=== PATIENT | male | born 1945 | race Caucasian/White ===

== ENCOUNTER 2020-11-06 02:11 | Outpatient (CLI) | payer MEDICARE, OTHER, SELFPAY ==
[2020-11-06 18:46] LABS: SARS-CoV-2 RNA PCR Negative
== END 2020-11-06 02:12 | disposition home or self-care (01) ==
LOC: ANHCOVIDDT 02:11
PROVIDERS: Visit Provider Internal Medicine Hematology & Oncology
DX: R91.8 Other nonspecific abnormal finding of lung field (principal); Z20.828 Contact with and (suspected) exposure to other viral communicable diseases
CPT/HCPCS: 87635; C9803; U0003

== ENCOUNTER 2020-11-09 08:52 | Outpatient (CLI) | payer MEDICARE, SELFPAY ==
[2020-11-09] VITALS (7 sets, daily range): BP systolic 138–159; BP diastolic 64–101; PULSE 79–87; RESP 14–24; O2SAT 94–100
--- NOTE | ~2020-11-09 | CT_ITS ---
EXAMINATION:CT chest wo con DATE: 11/09/2020 11:11 INDICATION: Right lung upper lobe mass. TECHNIQUE: Computed tomography (CT) of the chest was performed without intravenous contrast. Automate d exposure control and iterative reconstruction technique were employed. The dose-length product (DLP ) was 157.29 mGy-cm. COMPARISON: CT abdomen and pelvis 09/17/2015 FINDINGS: There is mild emphysema. There is mild scarring at left lung apex. There is a moderate-size d right pleural effusion. There is a right perihilar mass that invades the right mainstem bronchus, r ight upper lobe bronchus, and bronchus intermedius. There is complete collapse of right upper lobe an d right middle lobe. The mass abuts the superior vena cava The mass is not well distinguished from th e adjacent collapsed lung, but likely measures at least 5.3 cm. There is mild mediastinal and right s upraclavicular lymphadenopathy. For example, a node in the right superior mediastinum measures 10 x 1 2 mm. A right supraclavicular node measures 1.5 x 1.2 cm. The heart size is normal. There are coronar y artery calcifications. There are changes of aortic valve replacement. Partially visualized is a casa nt graft in abdominal aorta. There is bilateral gynecomastia. There are enlarged venous collaterals i n the chest wall. There is mild thoracic spondylosis. IMPRESSION: 1. Right lung perihilar mass, consistent with primary bronchogenic carcinoma. 2. Mild mediastinal and right supraclavicular lymphadenopathy, consistent with metastatic disease. 3. Moderate-sized right pleural effusion. Ultrasound-guided thoracentesis is recommended. Reviewed, dictated and finalized at location A. R CONNECTOR IMPRESSION: 1. Right lung perihilar mass, consistent with primary bronchogenic carcinoma. 2. Mild mediastinal and right supraclavicular lymphadenopathy, consistent with metastatic disease. 3. Moderate-sized right pleural effusion. Ultrasound-guided thoracentesis is re commended.
--- NOTE | ~2020-11-09 | US_ITS ---
EXAMINATION: US thoracentesis DATE: 11/09/2020 13:19 INDICATION: pleural effusion TECHNIQUE: The procedure and its risks, benefits, and alternatives were discussed with the patient. P otential risks discussed included bleeding, infection, and pneumothorax. The patient understood the r isks and agreed to proceed. The skin was prepped and draped in sterile fashion. 1% lidocaine was used for local anesthesia. Under ultrasound guidance, a 5 Fr catheter with trochar was advanced into the right pleural effusion. Fluid was aspirated. The catheter was removed, and a dressing was applied. Th ere were no immediate complications. FINDINGS: Ultrasound images demonstrate a right pleural effusion and the catheter within the fluid. IMPRESSION: 1. Successful ultrasound-guided thoracentesis yielding 1000 mL of clear, odalis-colored fluid. Reviewed, dictated and finalized at location A. LATION BATTING MACHINE OPERATOR IMPRESSION: 1. Successful ultrasound-guided thoracentesis yielding 1000 mL of clear, odalis -colored fluid.
--- NOTE | ~2020-11-09 | XR_ITS ---
EXAMINATION: [id number] DATE: 11/09/2020 13:08 INDICATION: Right pleural effusion status post thoracentesis. TECHNIQUE: A single frontal view of the chest was obtained. COMPARISON: Chest CT 11/09/2020 FINDINGS: There is a right perihilar mass with collapse of right upper lobe and right middle lobe. Th ere is a small right pleural effusion. No pneumothorax. The heart size is normal. There are changes o f aortic valve replacement. IMPRESSION: 1. Right perihilar mass suspicious for primary bronchogenic carcinoma. 2. Right upper lobe and right middle lobe collapse. 3. Small right pleural effusion. Reviewed, dictated and finalized at location A. OPERATOR
[2020-11-09 09:20] LABS: INR 1.2
--- NOTE | 2020-11-09 15:21 | SUR.PHASEII ---
no shadowing on bandaid on back from procedure. dr jeffrey was called about pt discharge time. was ok with him leaving.
[2020-11-11 07:40] LABS: Glucose Pleural Fluid 107 mg/dL; LDH Pleural Fluid 143 U/L; Total Protein Pleural Fluid 4.2 g/dL
== END 2020-11-09 15:10 | disposition home or self-care (01) ==
PROVIDERS: Radiology Diagnostic Radiology; PCP Family Medicine; Visit Provider Internal Medicine Hematology & Oncology
DX: J90 Pleural effusion, not elsewhere classified (principal)
CPT/HCPCS: 32555; 36415; 71250; 82945; 83615; 84157; 85610; 87070; 87075; 87205; 88104; 88108; 88305

== ENCOUNTER 2020-11-19 09:16 | Outpatient (CLI) | payer MEDICARE, SELFPAY ==
--- NOTE | ~2020-11-19 | PE_ITS ---
EXAMINATION: PET skull to mid thigh DATE: 11/19/2020 10:59 INDICATION: Right upper lobe mass TECHNIQUE: 10.1 mCi of 18-fluorodeoxyglucose (18-FDG) was administered i.v. Low dose computed tomogra phy (CT) images were acquired from the base of the brain to the proximal thighs for attenuation corre ction and anatomic localization. Positron emission tomography (PET) images were acquired after inject ion. Images including fused PET/CT images were reconstructed in axial, coronal, and sagittal planes. Automatic exposure control is employed as a dose reduction technique. COMPARISON: CT dated 09/17/2015 and 11/09/2020 FINDINGS: Head/neck: There is mucosal uptake in the neck without associated mass, weekly physiologic. No cervical lymphade nopathy. There is atherosclerosis. There is an ill-defined right parotid mass which is FDG avid. Maxi mum SUV is 12.2. Chest: There is a right upper lobe mass measuring 7.7 x 6.9 cm greatest axial dimension with intense FDG upt michael. Maximum SUV is 10.4. Interval development of large right pleural effusion which appears partiall y loculated. There is a mottled appearance to the loculated fluid anteriorly, suspicious for empyema. There is groundglass opacification of the right lung which may represent atelectasis or pneumonia. H eart size is normal. There is atherosclerosis of the aorta and coronary arteries. Status post median sternotomy for CABG. There are mildly enlarged right supraclavicular nodes without significant FDG up take, nonspecific. Abdomen/pelvis/proximal thighs: The liver, spleen, pancreas, adrenal glands and kidneys are unremarkable. There is an infrarenal abdo robyn aortic aneurysm reidentified with interval placement of aorto biiliac endoluminal stent. There is mild FDG uptake in the small and large bowel, likely physiologic. There is severe lumbar spondylos is. There is a left total hip arthroplasty. Moderate colonic fecal loading. No obstruction. Bones/Soft tissues: No hypermetabolic activity in the bones. IMPRESSION: 1. Large FDG avid right upper lobe mass measuring 7.7 x 6.9 cm with maximum SUV of 10.4, consistent w ith bronchogenic carcinoma. 2: Large loculated right pleural effusion with possible associated empyema. Pleural effusion possibly malignant. 3: Ill-defined FDG avid right parotid gland mass with maximum SUV of 12.2, consistent with metastatic disease. Reviewed, dictated and finalized at location A. MOTIVE PROJECT ENGINEER IMPRESSION: 1. Large FDG avid right upper lobe mass measuring 7.7 x 6.9 cm with maximum SUV of 10.4, consistent with bronchogenic carcinoma. 2: Large loculated right pleural effusion with possible associated empyema. Ple ural effusion possibly malignant. 3: Ill-defined FDG avid right parotid gland mass with maximum SUV of 12.2, cons istent with metastatic disease.
[2020-11-19 09:31] LABS: Glucose Point of Care 96 (65-105)
== END 2020-11-19 09:17 | disposition home or self-care (01) ==
PROVIDERS: PCP Family Medicine; Visit Provider Internal Medicine Hematology & Oncology
DX: R91.8 Other nonspecific abnormal finding of lung field (principal)
CPT/HCPCS: 78815; A9552

== ENCOUNTER 2020-11-28 01:26 | Outpatient (CLI) | payer MEDICARE, SELFPAY ==
[2020-11-28 20:08] LABS: SARS-CoV-2 RNA PCR Negative
== END 2020-11-28 01:27 | disposition home or self-care (01) ==
LOC: ANHCOVIDDT 01:26
PROVIDERS: Radiology Diagnostic Radiology; PCP Family Medicine; Visit Provider Internal Medicine Hematology & Oncology
DX: Z01.812 Encounter for preprocedural laboratory examination (principal); Z20.822 Contact with and (suspected) exposure to COVID-19
CPT/HCPCS: C9803; U0003

== ENCOUNTER 2020-12-02 10:18 | Outpatient (CLI) | payer MEDICARE, SELFPAY ==
[2020-11-25 10:27] VITALS: BMI 21.0
[2020-12-02] VITALS (10 sets, daily range): BP systolic 120–159; BP diastolic 60–83; PULSE 72–83; RESP 18–20; O2SAT 94–99
--- NOTE | ~2020-12-02 | CT_ITS ---
Corrected Report Order # Associated 12/03/2020 [facility] EXAMINATION: CT bx lung DATE: 12/02/2020 11:44 INDICATION: Malignant neoplasm of right lung. TECHNIQUE: The procedure including the risks, benefits, and alternatives and possibility of chest tube placement were discussed with the patient. Risks discussed included infection, approximately 1/20 risk of symptomatic hemorrhage beyond mild hemoptysis, approximately 1/3 risk of pneumothorax, approximately 1/10 risk of pneumothorax severe enough to warrant chest tube placement. The patient understood the risks and agreed to proceed. The patient was placed supine. The skin overlying the right chest was prepped and draped in sterile fashion. Anesthetic was administered with 1% lidocaine subcutaneously. A 19 gauge outer needle was advanced under CT guidance to the lesion of interest. A 20 gauge core biopsy needle was then used to obtain 3 core biopsy specimens. The needle was removed and the entry site was cleaned and dressed. The mA was adjusted according to patient size. Iterative reconstruction technique was employed. The dose-length product was 103.88 mGy-cm. There were no immediate complications. FINDINGS: CT images demonstrate the outer needle tip in a 7 cm mass in right lung upper lobe. IMPRESSION: 1. CT-guided core needle biopsy of a mass in right lung upper lobe. Reviewed, dictated and finalized at location A. YL WRINGER OPERATOR MTDD
--- NOTE | ~2020-12-02 | XR_ITS ---
EXAMINATION: XR chest 1V portable DATE: 12/02/2020 12:26 INDICATION: Right lung mass status post percutaneous biopsy. TECHNIQUE: A single frontal view of the chest was obtained. COMPARISON: Chest single view at 11:42 AM FINDINGS: There is a mass in right lung upper lobe. There is a moderate-sized right pleural effusion. No pneumothorax. The heart size is normal. There are changes of aortic valve replacement. IMPRESSION: 1. Mass in right lung upper lobe suspicious for primary bronchogenic carcinoma. 2. Stable moderate-sized right pleural effusion. Reviewed, dictated and finalized at location A. ET STITCHER
--- NOTE | ~2020-12-02 | XR_ITS ---
EXAMINATION: XR chest 1V portable DATE: 12/02/2020 14:33 INDICATION: Right lung mass status post percutaneous biopsy. TECHNIQUE: A single frontal view of the chest was obtained. COMPARISON: Chest single view at 12:21 PM FINDINGS: There is a mass in right lung upper lobe. There is a moderate-sized right pleural effusion. No pneumothorax. The heart size is normal. There are changes of aortic valve replacement. IMPRESSION: 1. Mass in right lung upper lobe suspicious for primary bronchogenic carcinoma. 2. Stable moderate-sized right pleural effusion. Reviewed, dictated and finalized at location A. CAL INSTRUMENT ASSEMBLER
--- NOTE | ~2020-12-02 | XR_ITS ---
EXAMINATION: XR chest 1V DATE: 12/02/2020 11:46 INDICATION: Right lung mass status post percutaneous biopsy. TECHNIQUE: A single frontal view of the chest was obtained. COMPARISON: PET CT 11/19/2020 FINDINGS: There is a mass in right lung upper lobe. There is a moderate-sized right pleural effusion. No pneumothorax. The heart size is normal. There are changes of aortic valve replacement. IMPRESSION: 1. Mass in right lung upper lobe suspicious for primary bronchogenic carcinoma. 2. Moderate-sized right pleural effusion. Reviewed, dictated and finalized at location A. M PROJECT MANAGER
--- NOTE | 2020-12-02 15:10 | SUR.PHASEII ---
1510 - iv dc'jose. catheter intact
--- NOTE | 2020-12-02 15:10 | SUR.PHASEII ---
1450 - Dr. Ac called and stated that pt may be discharged home
== END 2020-12-02 14:50 | disposition home or self-care (01) ==
PROVIDERS: Radiology Diagnostic Radiology; PCP Family Medicine; Visit Provider Internal Medicine Hematology & Oncology
DX: C34.91 Malignant neoplasm of unspecified part of right bronchus or lung (principal)
CPT/HCPCS: 32408; 71045; 81210; 81235; 81275; 81276; 88271; 88274; 88305; 88342; 88360; 88381

== ENCOUNTER 2020-12-05 04:46 | Outpatient (CLI) | payer MEDICARE, SELFPAY ==
[2020-12-05 19:32] LABS: SARS-CoV-2 RNA PCR Negative
== END 2020-12-05 04:47 | disposition home or self-care (01) ==
LOC: ANHCOVIDDT 04:46
PROVIDERS: Surgery; PCP Family Medicine; Visit Provider Surgery
DX: Z01.812 Encounter for preprocedural laboratory examination (principal); Z20.822 Contact with and (suspected) exposure to COVID-19
CPT/HCPCS: C9803; U0003

== ENCOUNTER 2020-12-09 02:48 | Day surgery (SDC) | payer MEDICARE, SELFPAY ==
[2020-12-02 15:34] VITALS: BMI 20.9
--- NOTE | 2020-12-08 11:20 | PM.SD ---
Same Day Admit/Disch: HPI History of Present Illness Chief complaint: Malignant Neoplasm Of Right Lung Narrative: Migel Chin is a 75 year old male who was found to have a large right upper lobe lung mass. CT-guided biopsy of this showed non-small cell lung cancer. He also has mediastinal and supraclavicular adenopathy. Plans are for him to have chemotherapy and he is taken to surgery now to have a Port-A-Cath placed for vascular access. [facility] Past Medical History Medical History (Updated 12/09/20 @ 10:25 by Eric Shah MD) Benign parotid tumor CAD (coronary artery disease) Surgical History Surgical History Hx of CABG Family History Family History Father Family history of diabetes mellitus in first degree relative Other Family history of allergic disorder Social History Social History Smoking packs per day: 1 Smoking cigarettes per day: 20.0 Years smoked: 35 Smoking pack-years: 35.00 Smoking status: Former smoker Tobacco type: cigarettes Second hand tobacco smoke exposure: No Alcohol intake: never Substance use: never Substance use type: does not use Living arrangements: alone Spiritual care concerns: No Same Day Admit/Disch: Med Pre-admit Medications Home Medications Medication Instructions Recorded Confirmed Type atorvastatin 10 mg PO HS 11/09/20 12/09/20 History furosemide 40 mg PO DAILY 11/09/20 12/09/20 History lisinopril 20 mg PO DAILY 11/09/20 12/09/20 History metoprolol tartrate 12.5 mg PO BID 11/09/20 12/09/20 History ibuprofen 600 mg PO Q6H PRN #14 tablet 12/09/20 Rx Exam Const: General: comfortable, no acute distress, alert and awake HENMT: Head: normocephalic and atraumatic Mouth: Yes Normal oral and palatal mucosa present Eyes: Conjunctivae: conjunctivae normal Pupils: Equal, round and reactive pupils present EOM: EOMs intact bilaterally Neck: Neck: normal visual inspection, no lymphadenopathy and nontender Resp: Effort & Inspection: normal respiratory effort Auscultation: clear to auscultation bilaterally Cardio: Rate: regular rate Rhythm: regular rhythm Heart sounds: no gallops, no murmurs and no rubs GI: Inspection: non-distended GI Palp: Yes Soft to palpation, No Tenderness to palpation present (GI), No Hepatomegaly present and No Splenomegaly present Skin: Lesions: no lesions Rashes: no rashes Neuro: General: no focal motor deficits and CN's II-XI intact bilaterally Cranial nerves: Yes Equal, round and reactive pupils present, Yes Bilaterally intact EOM present, Yes facial symmetry and Yes Midline tongue present Speech: normal speech Motor exam (neuro): 5/5 motor strength present throughout and Motor abnormalities not present Extrem: General: no clubbing, cyanosis or edema and edema Psych: Affect: normal affect Thought process: Normal thought process present Insight: Good insight present (Psych) DS: Summary Hospital Course Hospital Course: Port-A-Cath unable to be placed due to tumor involvement of the proximal SVC. Patient went home after attempted port placement. Time Spent with Patient Time attestation: Total time spent providing and/or coordinating discharge services: Unable to place Port-A-Cath due to tumor involvement of proximal SVC. Patient went home after attempted placement. DS: Admitting Diagnosis Admitting Diagnosis Admitting Diagnosis: stage IIIC non-small cell right lung cancer inadequate venous access for chemotherapy-- plan to proceed with placement of Port-A-Cath for chemotherapy vascular access. The procedure the risks the benefits have been discussed. All questions were answered. This will be done under fluoroscopy and anesthesia. He agrees to go ahead. smoker essential hypertension DS: Discharge Diagnosis Discharge Diagnosis (1) Prima
--- NOTE | ~2020-12-09 | XR_ITS ---
EXAMINATION: XR chest port-a-cath/central INDICATION: Attempted Port-A-Cath insertion TECHNIQUE: Portable AP chest at 1308 hours COMPARISON: 12/02/2020 FINDINGS: No pneumothorax is identified. There is a stable mass of the right upper lobe. A moderate s ize right pleural effusions present. The heart size is normal. Changes of aortic valve replacement ar e noted. IMPRESSION: 1. No pneumothorax. 2. Right upper lobe mass, suspicious for primary bronchogenic carcinoma. Reviewed, dictated and finalized at location A. CISER
--- NOTE | ~2020-12-09 | XR_ITS ---
EXAMINATION: XR fl guide central line place INDICATION: Port-A-Cath insertion TECHNIQUE: Four intraoperative fluoroscopic images are submitted for review. Total fluoroscopic time was 384.9 seconds COMPARISON: None available FINDINGS: Final fluoroscopic image demonstrates the catheter tip in the distal superior vena cava. Pl ease refer to procedure note for full details. IMPRESSION: 1. Catheter tip ending in the distal superior vena cava. Please refer to procedure note for full deta ils. Reviewed, dictated and finalized at location A. R WET POUR IMPRESSION: 1. Catheter tip ending in the distal superior vena cava. Please refer to proced ure note for full details.
--- NOTE | 2020-12-09 10:24 | WPDANESEPPF ---
Anes - Initial Pre Proc Eval Procedure: Operation Date: 12/09/20 12:00 Proposed Procedures p Insertion Harsh Cath - Cem Haile MD Date/Time: 12/09/20 10:24 Surgeon: Cem Haile MD Pre Op Diagnosis: Malignant Neoplasm Of Right Lung Patient Data Age: 75 Gender: M Height: 5 ft 11 in Weight: 68.3 kg Allergies Allergy/AdvReac Type Severity Reaction Status Date / Time codeine Allergy Nausea and Verified 11/25/20 10:09 Vomiting nut - unspecified AdvReac Hives Verified 12/02/20 15:45 Home Medications Medication Instructions Recorded Confirmed Type atorvastatin 10 mg PO HS 11/09/20 12/02/20 History furosemide 40 mg PO DAILY 11/09/20 12/02/20 History lisinopril 20 mg PO DAILY 11/09/20 12/02/20 History metoprolol tartrate 12.5 mg PO BID 11/09/20 12/02/20 History Patient hx anesthesia problems: none Family hx anesthesia problems: none PMFSH Past Medical History Medical History (Updated 12/09/20 @ 10:25 by Eric Shah MD) Benign parotid tumor CAD (coronary artery disease) Surgical History Surgical History Hx of CABG Family History Family History Father Family history of diabetes mellitus in first degree relative Other Family history of allergic disorder Social History Social History Smoking packs per day: 1 Smoking cigarettes per day: 20.0 Years smoked: 35 Smoking pack-years: 35.00 Smoking status: Former smoker Tobacco type: cigarettes Second hand tobacco smoke exposure: No Alcohol intake: never Substance use: never Substance use type: does not use Living arrangements: alone Spiritual care concerns: No Anes - Eval Final PreProcedure Day of Procedure 12/09/20 10:24 Patient weight: normal Heart: regular rate and rhythm Lungs: clear to auscultation Airway: Mallampati scale class II Neurological: alert and oriented Last oral intake: >/= 8 hours ASA classification: III Emergent: no Anesthetic plan: proceed Anesthesia type and monitoring: general GIVS and standard monitoring Informed Consent: The patient's anesthetic plan and its attendant risks and benefits were discussed with the patient/family/POA. Questions were solicited and answers provided to the satisfaction of the patient/family/POA.
[2020-12-09] MEDS: LACTATED RINGERS 1,000 ML 30 ML IV CONT (10:30)
[2020-12-09 11:26] VITALS: BP 115/64; PULSE 83; RESP 20; TEMP 36.2; O2SAT 97
[2020-12-09] MEDS: ceFAZolin 2 GM/D5W 50 ML 2 GM/50 ML BAG IVPB (11:38)
[2020-12-09] MEDS: BUPIVACAINE HCL 0.5% PF 30 ML VIAL 10 ML INFILTRATE (11:56)
[2020-12-09] MEDS: HEPARIN SODIUM 1,000 UNITS/ML VIAL 1000 UNITS IV PUSH (11:58)
[2020-12-09 12:52] VITALS: BP 96/45; PULSE 80; RESP 16; O2SAT 95
--- NOTE | 2020-12-09 13:19 | PM.PROC ---
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 The left neck and left upper chest were prepped and draped. The proposed subclavian incision was marked on the skin. Local anesthetic was infiltrated into the area of the anticipated incision and into the subcutaneous tissues. Local was infiltrated under the left clavicle is well. Incision was made dissection was carried down through the subcutaneous and through the pectoralis major fascia. Additional cautery was used to achieve good hemostasis. Dissecting under the pectoralis fascia, a sub fascial pocket was created in the lower portion of the wound. Additional local was infiltrated into the muscle and the flap over this pocket. I then proceeded to cannulate the left subclavian vein. Venous blood return was good but the guidewire had difficulty passing. We brought in C-arm fluoroscopy. There appeared to be tracheal deviation due to tumor. Eventually the guidewire did pass into what appeared to be the superior vena cava. The introducer and sleeve were passed over the guidewire and assisted in passing the guidewire into the proximal SVC. The length of Port-A-Cath needed was determined using C-arm fluoroscopy and mapping over the course of the guidewire. I then removed the guidewire and introducer. No backbleeding occurred through the sleeve. I advanced the Port-A-Cath through the sleeve and, using fluoroscopy, checked its position. It was in the expected position. However I could not aspirate any blood from the Port-A-Cath. The sleeve was removed. I slowly retracted the Port-A-Cath and was never able to get any blood return at all from the path into the SVC. This Port-A-Cath was then removed. I tried to cannulate the left subclavian vein again. This was more medial and a good cannulation occurred. This time I used a 0.035 glidewire and pass this with only mild amount of difficulty in to the right ventricle. It did have a deviated course as expected but appeared to be in the right ventricle as 1 would expect. A different Port-A-Cath was brought into the field. This Port-A-Cath was cut to a longer length and, after passing a sheath and introducer, I removed the guidewire and the introducer. Again no back bleeding was noted. I passed the new Port-A-Cath and, under fluoroscopy it appeared to be in the superior vena cava or right atrium. Unfortunately this did not bring back any venous return either when the Port-A-Cath was checked. I slowly pulled it back with similar results. From there I tried several times to cannulate the left internal jugular vein but did not get a satisfactory venous return. Several arterial appearing returns occurred. Since the problem seemed to be more associated with the superior vena cava, I was not optimistic that an internal jugular cannulization would be any more effective. At this point I decided to abandon placement of the Port-A-Cath at this time. We held pressure on the left neck puncture sites. There was minimal swelling there. I closed the left subclavian incision in layers with 2 0 Vicryl. The skin was closed with running subcuticular 4 0 Monocryl skin suture. This wound was dressed with Exofin surgical adhesive. The patient was taken to recovery in good condition. Sponge and needle counts were correct x2. Portable chest x-ray is pending. Following the procedure, I looked at the CT scan with our radiologist Dr. Ac. We reviewed the mediastinum in regards to the left and right brachiocephalic veins and the SVC. The lung tumor had caused both the left and right brachial cephalic veins to be diminutive and caught up in the tumor. The most proximal SVC was really
[2020-12-09 13:39] VITALS: BP 96/45; PULSE 81; RESP 16; O2SAT 95
[2020-12-09 14:10] VITALS: BP 139/61; PULSE 75; RESP 16
[2020-12-09 14:50] VITALS: BP 134/64; PULSE 79; RESP 16
== END 2020-12-09 15:34 | disposition home or self-care (01) ==
PROVIDERS: PCP Family Medicine; Visit Provider Surgery
PROC: (CPT 36561; principal; 2020-12-09 12:00)
DX: C34.11 Malignant neoplasm of upper lobe, right bronchus or lung (principal); I87.8 Other specified disorders of veins; I25.10 Atherosclerotic heart disease of native coronary artery without angina pectoris; Z95.1 Presence of aortocoronary bypass graft; Z87.891 Personal history of nicotine dependence
CPT/HCPCS: 36561; 77001; C1769; C1788; C9290; J0690; J1644; J2704; J3010; J7030; J7120

== ENCOUNTER 2020-12-18 13:34 | Outpatient (CLI) | payer MEDICARE, SELFPAY ==
--- NOTE | 2020-12-18 | ECHO_ITS ---
Patient Info Name: Migel Chin Age: 75 years : 1945 Gender: Male Ht: 71 in Wt: 150 lbs BSA: 1.84 m2 HR: 83 bpm BP: 121 / 65 mmHg Technical Quality: Poor Exam Date: 12/18/2020 1:45 PM Exam Location: [facility] Patient Status: Outpatient Admit Date: 12/18/2020 Staff Ordering Physician: Manuel Tenorio MD Plaster Maker: Caroline Maharaj RDCS Attending Provider: Manuel Tenorio MD Referring Physician: Jona YU; Exam Type: CA echo doppler color flow Study Info Indications - LUNG CA/PRE CHEMO R60.9 - Edema, unspecified Complete two-dimensional, color flow and Doppler transthoracic echocardiogram is performed. Reason for Poor Study: poor echocardiographic windows Summary 1. Complete two-dimensional, color flow and Doppler transthoracic echocardiogram is performed. 2. Normal left ventricular size and thickness with good systolic function of all segments. No segmental wall motion abnormalities. The calculated ejection fraction is 60 9%. Diastolic dysfunction grade 1 is present. 3. No pulmonary hypertension, estimated pulmonary arterial systolic pressure is 30 mmHg. 4. The mitral valve is thickened and the annulus is calcified. There is thickening and calcification of the subvalvular apparatus as well. However there is no significant stenosis or regurgitation. 5. Left atrium is not well seen, and never opens up. Cannot exclude extrinsic compression on the left atrium. 6. Technically difficult study; some images had to be done subcostally. 7. Normal sinus rhythm. Left Ventricle Left ventricular chamber dimension is normal. Left ventricular systolic function is normal, estimated at Empty. There is no increased left ventricular wall thickness. Left ventricular septal wall motion is normal. The left ventricular diastolic function is grade I diastolic dysfunction. Right Ventricle Right ventricular chamber dimension is normal. Right ventricular systolic function is normal. Left Atria Left atrial chamber dimension is normal. Right Atria Right atrial chamber dimension is normal. Aortic Valve The aortic valve is trileaflet. There is no aortic valve sclerosis. There is no aortic valve stenosis. There is no aortic valve regurgitation. Pulmonic Valve The pulmonic valve is normal. There is no pulmonic valve stenosis. There is no pulmonic regurgitation. Mitral Valve The mitral valve has thickened leaflets and calcified annulus. There is no mitral valve stenosis. There is trace mitral valve regurgitation. Tricuspid Valve The tricuspid valve leaflets are normal. There is no significant tricuspid valve stenosis. There is trace tricuspid valve regurgitation. No pulmonary hypertension, estimated pulmonary arterial systolic pressure is 30 mmHg. Pericardium/Pleural The pericardium appears normal. There is no pericardial effusion. Inferior Vena Cava Normal inferior vena cava with >50% collapse upon inspiration consistent with Empty right atrial pressure, 10 mmHg. Aorta The aortic root size at the sinus of Valsalva is normal. The prox ascending aorta size is normal. Left Ventricular Outflow Tract Name Value Normal LVOT 2D LVOT Diameter 2.0 cm
== END 2020-12-18 13:35 | disposition home or self-care (01) ==
PROVIDERS: PCP Family Medicine; Visit Provider Internal Medicine Hematology & Oncology
DX: Z51.11 Encounter for antineoplastic chemotherapy (principal); R60.9 Edema, unspecified
CPT/HCPCS: 93306

== ENCOUNTER 2021-01-12 13:00 | Outpatient (RCR) | payer MEDICARE, SELFPAY ==
--- NOTE | 2020-11-25 10:19 | PDRADONCCN ---
Recommendations I agree with obtaining a tissue diagnosis with biopsy of the lung mass. I recommend following up with Dr. Zepeda for his FDG-avid parotid tumor. Pending pathologic confirmation of his locally advanced lung malignancy, I recommend a course of thoracic chemoradiotherapy - 60 Gy in 30 fractions. Given the proximity of the treatment volume to critical normal structures including the normal lung, heart, esophagus, brachial plexus and spinal cord, IMRT will be required in an effort to spare these structures while providing the necessary high doses of radiation to the target. We discussed the details of external beam radiation therapy directed at the right upper lobe lung and involved adjacent lymph nodes which would be delivered daily, Monday through Monday over about 6 weeks. We discussed the expected acute side effects of treatment including esophagitis, fatigue and skin irritation, as well as the possible but unlikely late complications including pneumonitis, brachial plexus or spinal cord injury, heart damage and esophageal stricture. These late effects of radiotherapy will be minimized with the use of VMAT IMRT. After our discussion, Mr. Chin expressed an interest in proceeding with treatment as outlined. We will await an official tissue diagnosis from his upcoming biopsy. He will return for CT simulation and radiation treatment planning in the upcoming days. We will coordinate the start of his treatment with medical oncology for concurrent chemotherapy. Thank you for allowing me to participate in the care of this patient. If I can be of any further assistance, please do not hesitate to contact me. Time spent with patient: 46 min Impression Migel Chin is a 75 y.o. male with newly diagnosed lung cancer - stage IIIC (T4 N3 MX). He also has a right parotid tumor as well. [facility] - Date/Time Seen 11/25/20 10:19 - Identifying Data Migel Chin is a 75 y.o. male with newly diagnosed lung cancer - stage IIIC (T4 N3 MX). He has a right parotid tumor as well. He is seen in consultation today at the request of Dr. Manuel Tenorio for an opinion regarding radiation therapy. - History of Present Illness Mr. Chin initially had some chest discomfort which prompted a chest x-ray and subsequently a CT scan of chest on 11/09/2020 which showed a right lung perihilar mass, consistent with primary bronchogenic carcinoma, along with mild mediastinal and right supraclavicular lymphadenopathy, consistent with metastatic disease. A moderate-sized right pleural effusion was noted and an ultrasound-guided thoracentesis was performed on 11/09/2020. Cytology came back negative for malignancy. His chest discomfort went away immediately after his thoracentesis and has not returned. ?PET scan on 11/19/2020 revealed a 7.7 x 6.9 cm right upper lobe lung mass with SUV of 10.4, consistent with bronchogenic carcinoma. Also noted was an ill-defined right parotid mass with SUV of 12.2. Of note, he does have a history of multiple parotid gland tumor resections in the past under the direction of Dr. Zepeda with the last surgery 8 years ago for benign pathology. ?CT-guided biopsy of right upper lobe lung mass has been ordered by Dr. Tenorio and is scheduled for 12/02/2020. He is referred for a discussion regarding his radiotherapy options. - Medical History Medical History (Last Updated 11/25/20 @ 12:50 by Tashia Alejandro MD) Benign parotid tumor - Family History Family History Father Family history of diabetes mellitus in first degree relative Other Family history of allergic disorder - Social History Social History Alcohol Use: Alcohol intake: never Smoking Status: Smoking status: Current every day smoker - Medications atorvastatin 10 mg PO DAILY 11/09/20 [History Confirmed 11/25/20] furosemide 20 mg PO DAILY 11/09/20 [History Confirmed 11/25/20] lisinopril 20 mg PO DAILY 11/09/20 [History Confirmed
[2020-11-25 12:34] VITALS: BMI 21.2
[2020-11-25 12:36] VITALS: BP 118/60; PULSE 94; RESP 20; TEMP 37.2; O2SAT 97
--- NOTE | 2020-11-25 13:40 | PC.NURSE ---
Consult note faxed to Dr German office.
[2020-12-14 11:12] VITALS: BP 126/68; PULSE 90; RESP 22; TEMP 37.3; O2SAT 97
--- NOTE | 2020-12-14 11:19 | PDRADONCFUV ---
Assessment/Plan - Assessment Ready to start radiotherapy. - Plan 1. Proceed with 4D CT simulation and radiation treatment planning. 2. Plan for 30 fractions over 6 weeks starting in one week. 3. Informed consent obtained. 4. Chemotherapy per Dr. Tenorio. 5. Patient to discuss extremity swelling with Dr. Tenorio. Follow Up Note - Date/Time 12/14/20 11:19 - Identifying Data Migel Chin is a 75 y.o. male with newly diagnosed lung cancer - stage IIIC (T4 N3 M0). He returns today for initiation of radiation treatment planning. - Interval History Mr. Chin was unable to have a port placed and the procedure was aborted. He has significant swelling in his hands and feet and reports that lasix is not helping. He is planning on calling Dr. Tenorio today to discuss. H&P - Exam - General Appears pleasant and in no apparent distress. - Vital Signs Vital Signs Temp Pulse Resp BP Pulse Ox 12/14/20 11:12 37.3 C 90 22 H 126/68 97 Patient Weight 12/14/20 23:59 Weight 69.967 kg Pain rating is 0. - Exam Extremities: edema (Significant edema in hands and feet. )
--- NOTE | 2020-12-14 11:38 | WPDRADIATPRO ---
Radiation Procedure Note - Date/Time Date/Time: 12/14/20 11:38 - Summary Summary: Procedure Date: 12/14/[address] SIMULATION PROCEDURE PURPOSE: The patient is undergoing a virtual CT simulation for external beam radiation treatment planning. Today?s 4D-CT dataset will be utilized for intensity modulated treatment planning (IMRT). TREATMENT SITE(S): Right Lung NUMBER OF AREAS OR CASTELLANOS: One treatment area was simulated today. NUMBER OF PORTS: IMRT using multiple static gantry angles, arcs, or helical tomotherapy will be needed to cover the treatment volume and adequately protect nearby critical normal tissues. The number of ports will be determined during the treatment planning process. EQUIPMENT USED: Simulation was performed on the department?s dedicated CT simulator. IMMOBILIZATION: An alpha cradle device was fabricated to immobilize the patient?s body in treatment position. CONTRAST MEDIA: The use of contrast was not required for this simulation. EXTERNAL MARKERS: No external markers were used. TATTOOS: Positioning tattoos were applied to the patient?s skin BLOCKING: An intensity map generated by multiple MLC-shaped beamlets of complex design will be constructed as part of an IMRT treatment plan. COMPENSATING FILTER / WEDGE: None ISODOSE PLAN: An IMRT treatment plan will be performed to precisely deliver a specified dose to the treatment volume with narrow margins and to protect adjacent critical normal tissues from receiving excessive radiation exposure. SCHEDULING Prior to delivering the first radiation fraction, a simulation will be performed on the linear accelerator utilizing electronic portal imaging to verify the isocenter location and block design. DAILY IMAGE GUIDANCE: Utilizing the integrated CT scanner on the Elekta treatment machine, CT images through the treatment volume will be acquired daily prior to treatment to ensure precise patient positioning, thus allowing treatment of the tumor with narrow margins. MEDICAL NECESSITY FOR IMRT TREATMENT PLANNING: Dose escalation is planned to deliver radiation doses in excess of those commonly utilized with conventional treatments. The target volume is in close proximity to critical normal structures (lung, spinal cord, heart, esophagus) and must be treated with narrow margins to adequately protect immediately adjacent structures in order to reduce the probability of radiation toxicity. IMRT is the only treatment modality that can achieve this, as opposed to conventional 3D-treatment planning. MEDICAL NECESSITY FOR IGRT TREATMENT PLANNING: The target volume has inherent setup variation as a result of respiratory motion. IGRT, in conjunction with respiratory gating, is the only treatment modality that can correct for daily variances in target volume location, further improving the therapeutic ratio over IMRT alone.
--- NOTE | 2020-12-14 11:55 | WPDONCRADTXP ---
Radiation Treatment Plan - Date/Time Date/Time: 12/14/20 11:55 - Summary Summary: CLINICAL TREATMENT PLAN PATIENT NAME: Migel Chin TREATMENT INTENT: Cure SPECIAL TEST(S) INTERPRETED FOR TUMOR DELINEATION: PET/CT CHEMOTHERAPY CONSIDERATIONS: Concurrent chemotherapy (per Dr. Tenorio) PROTOCOL ENROLLMENT: none TREATMENT SITE(S): Right Lung NUMBER OF AREAS OR CASTELLANOS: 1 treatment area(s) NUMBER OF TREATMENT PORTS: Multiple conformal arcs (number to be determined during treatment planning process) IMMOBILIZATION: Alpha-cradle TREATMENT DEVICES: Custom blocks of complex design TREATMENT MODALITY: External photon beam PLANNED DOSE: 6000 cGy in 200 cGy fractions FRACTIONATION: QD TECHNIQUE CONTEMPLATED: IMRT, IGRT MEDICAL NECESSITY FOR IMRT TREATMENT PLANNING: The target volume is in close proximity to critical normal structures (normal lung, brachial plexus, esophagus, spinal cord) and must be treated with narrow margins to adequately protect immediately adjacent structures in order to reduce the probability of radiation toxicity. The dose required to deliver to the target volume exceeds the tolerance of these adjacent normal structures, which are so close that IMRT is the only treatment modality that can achieve this, as opposed to conventional 3D-treatment planning. MEDICAL NECESSITY FOR IGRT TREATMENT PLANNING: The target volume has inherent setup variation as a result of respiratory motion. IGRT, in conjunction with respiratory gating, is the only treatment modality that can correct for daily variances in target volume location, further improving the therapeutic ratio over IMRT alone.
--- NOTE | 2020-12-21 10:21 | WPDONCRADTXP ---
Radiation Treatment Plan - Date/Time Date/Time: 12/21/20 10:21 - Summary Summary: Date of Service: 12/14/2020 SPECIAL TREATMENT MANAGEMENT MEDICAL NECESSITY: A special treatment management code (11386) has been charged for this patient due to the additional time and effort required of myself and the department staff while performing and/or managing a special treatment situation. This procedure has been charged only once during the entire course of treatment. SPECIAL TREATMENT PROCEDURE: The administration of concurrent chemotherapy (per Dr. Tenorio) may result in greater side effects during and after the patient's planned course of radiation therapy. Radiation can react adversely with the effects of chemotherapy and create medical problems of a much greater severity than would be seen in a patient receiving radiation alone. This will considerably increase the complexity of the current treatment plan and on-going management of this patient.
[2020-12-21 11:40] VITALS: BP 128/60; PULSE 86; RESP 20; TEMP 36.9; O2SAT 98
--- NOTE | 2020-12-21 12:19 | WPDRADONCOTV ---
Assessment and Plan - Additional Plan s/p first fraction of radiotherapy. Imaging reviewed. Chemotherapy per Dr. Tenorio. Continue treatment as planned. On Treatment Visit - Date/Time of Treatment Date/Time: 12/21/20 12:19 Identifying data: Migel Chin is a 75 y.o. male with newly diagnosed lung cancer - stage IIIC (T4 N3 M0). He is undergoing a course of chemoradiotherapy. Site: Right Lung Dose: 200 cGy of 6000 cGy Fraction: History: Feeling well. No new complaints. Waiting on insurance for chemotherapy. Possibly revisit port placement after a couple weeks of treatment. H&P - Exam - General Appears well. - Vital Signs Vital Signs Temp Pulse Resp BP Pulse Ox 12/21/20 11:40 36.9 C 86 20 128/60 98 Patient Weight 12/21/20 23:59 Weight 64.41 kg Pain rating is 0.
[2020-12-28 11:10] VITALS: BP 130/68; PULSE 84; RESP 20; TEMP 37.2; O2SAT 99
--- NOTE | 2020-12-28 11:26 | WPDRADONCOTV ---
Assessment and Plan - Additional Plan Tolerating radiotherapy. Imaging reviewed. Chemotherapy per Dr. Tenorio. Encouraged to try carnation instant breakfast as nutritional supplement. Encouraged to continue drinking more fluids. Continue treatment as planned. On Treatment Visit - Date/Time of Treatment Date/Time: 12/28/20 11:26 History: Identifying data: Migel Chin is a 75 y.o. male with newly diagnosed lung cancer - stage IIIC (T4 N3 M0). He is undergoing a course of chemoradiotherapy. Site: Right Lung Dose: 1200 cGy of 6000 cGy Fraction: History: Feeling fairly well. He has intermittent hand swelling for which he takes a water pill; he had a syncopal episode from dehydration and paramedics were called. No major injuries. He takes himself off of the water pill when his left hand/arm swelling decreases. He is also drinking more water. Taste is altered and he has a decreased appetite. Trying to eat multiple small meals. Does not like the taste of ensure or boost. H&P - Exam - General Appears unchanged. - Vital Signs Vital Signs Temp Pulse Resp BP Pulse Ox 12/28/20 11:10 37.2 C 84 20 130/68 99 Patient Weight 12/28/20 23:59 Weight 64.58 kg Pain rating is 0.
[2021-01-04 09:58] VITALS: BP 126/68; PULSE 94; RESP 20; TEMP 37.1; O2SAT 100
--- NOTE | 2021-01-04 10:04 | WPDRADONCOTV ---
Assessment and Plan - Additional Plan Tolerating radiotherapy. Imaging reviewed. Chemotherapy as scheduled per Dr. Tenorio. Continue carnation instant breakfast as nutritional supplement. Continue drinking more fluids. Continue treatment as planned. On Treatment Visit - Date/Time of Treatment Date/Time: 01/04/21 10:04 History: Identifying data: Migel Chin is a 75 y.o. male with newly diagnosed lung cancer - stage IIIC (T4 N3 M0). He is undergoing a course of chemoradiotherapy. Site: Right Lung Dose: 2200 cGy of 6000 cGy Fraction: History: Doing better today. Breathing easier. Prefers carnation instant breakfast. Starts chemo on Monday. Peripheral IV since unable to place port. Having moderate to severe fatigue. H&P - Exam - General Appears unchanged. well-hydrated. - Vital Signs Vital Signs Temp Pulse Resp BP Pulse Ox 01/04/21 09:58 37.1 C 94 20 126/68 100 Patient Weight 01/04/21 23:59 Weight 67.245 kg Pain rating is 0.
[2021-01-11 09:36] VITALS: BP 120/54; PULSE 86; RESP 20; TEMP 36.8; O2SAT 99
[2021-01-12 12:58] VITALS: BP 140/70; PULSE 98; RESP 20; TEMP 36.6; O2SAT 100
[2021-01-12 12:59] VITALS: BP 138/68
[2021-01-12 13:12] VITALS: BP 120/64; BP 136/72
--- NOTE | 2021-01-12 13:38 | PC.NURSE ---
Mr Chin came in for his treatment today, which was not performed due to not feeling well. He asked if he could have some fluids, I told him I would check after getting VS which are recorded. After speaking with my Director, she said no today but possibly sometime tomorrow. He said he didn't know if he could wait till tomorrow he feels bad, he stated he is having some Shortness of breath, indigestion and constipation. He received Chemotherapy last week on . He also stated he had not eaten solid foods since Monday evening and could not get much fluids in since Monday. He has had Ty Ty Mix a few times, and could not drink any water. Mr Chin is sleepy while sitting in the chair, and is weak and shaky while standing. After speaking with him and telling him the ER is the best for a evaluation and treatment he agreed to go. [id number] Spoke with Elaine Garcia, Director of Cancer Center and discission was made to Call [phone]: [phone]: ER called report given to Esthela. RN 1329: EMS arrived and report given to Mode
--- NOTE | 2021-01-13 08:10 | PC.NURSE ---
Mr Giuseppe called to say he is feeling better but does not feel he can make it in today. He stated he received IV fluids in the ER and was sent home. I did ask about the belly pain he reported to have tenderness to the left side yesterday and he stated that is better too. No other comments or concerns at this time.
--- NOTE | 2021-02-01 10:41 | WPDRADIATTXS ---
Radiation Treatment Summary - Date/Time Date/Time: 02/01/21 10:41 - Diagnosis Diagnosis: Migel Chin is a 75 y.o. male with newly diagnosed lung cancer - stage IIIC (T4 N3 M0). He unfortunately and therefore did not complete his course of chemoradiotherapy which was delivered between 12/21/2020 and 01/11/2021. This note documents the treatment he received. - Narrative Narrative: TREATMENT DELIVERED The right lung cancer and involved mediastinum received 3200 cGy delivered in 16 daily fractions of 200 cGy each using VMAT IMRT. Daily CT image guidance was utilized to ensure highly precise patient alignment. 4D CT simulation was utilized for treatment planning and DVH analysis. His body was immobilized in treatment position with a custom fabricated alpha-cradle. TREATMENT COURSE He experienced mild esophagitis which was managed with diet modification and moderate to severe fatigue. DISPOSITION He unfortunately was admitted to the hospital with recurrent right pleural effusion, systemic inflammatory response syndrome, thrombocytopenia and ultimately cardiac arrest on 01/17/2021.
--- NOTE | 2021-02-01 11:40 | PC.NURSE ---
Treatment summary faxed to Dr Garcia office.
== END 2021-01-18 11:14 ==
LOC: AMCRADONC 13:00
PROVIDERS: PCP Family Medicine; Referring Provider Internal Medicine Hematology & Oncology; Visit Provider Radiology Radiation Oncology
DX: C34.11 Malignant neoplasm of upper lobe, right bronchus or lung (principal); R59.0 Localized enlarged lymph nodes; J90 Pleural effusion, not elsewhere classified; F17.200 Nicotine dependence, unspecified, uncomplicated; R60.9 Edema, unspecified; R43.9 Unspecified disturbances of smell and taste; R63.0 Anorexia
CPT/HCPCS: 36415; 77280; 77290; 77293; 77300; 77301; 77334; 77336; 77338; 77386; 80048; 80053; 83735; 85025; 96367; 96372; 96375; 96411; 96413; 99212; 99213; G0463; J1100; J2469; J3420; J7060; J9045; J9305

== ENCOUNTER 2021-01-12 13:44 | Emergency (ER) | payer MEDICARE, SELFPAY ==
[2021-01-12] VITALS (9 sets, daily range): BP systolic 137–140; BP diastolic 62–74; PULSE 98–111; RESP 11–22; TEMP 37; O2SAT 91–95
--- NOTE | 2021-01-12 16:57 | ED.ABDPAIN ---
HPI - Abdominal Pain General Chief Complaint: Abdominal Pain Stated Complaint: CONSTIPATION,ABD PAIN Time Seen by Provider: 01/12/21 16:42 Source: patient Mode of arrival: ambulatory Limitations: no limitations History of Present Illness HPI narrative: 75-year-old male Recently diagnosed with lung cancer Had several initial radiation therapy treatments Began chemotherapy last week For the last 4 days has had sore throat, pain swallowing, poor appetite, poor oral intake No fever no abdominal pain He arrived for his radiation therapy appointment today and was noted to be orthostatic, they were planning to give him IV fluids but they did not have a doctor in the clinic to prescribe him, and he opted to come to the ER for fluids today versus their offer to return tomorrow morning Related Data Home Medications Medication Instructions Recorded Confirmed atorvastatin 10 mg PO HS 11/09/20 01/12/21 lisinopril 20 mg PO DAILY 11/09/20 01/12/21 metoprolol tartrate 12.5 mg PO BID 11/09/20 01/12/21 dexamethasone 4 mg PO BID 12/30/20 01/12/21 folic acid 20 mg PO DAILY 12/30/20 01/12/21 naproxen sodium [Aleve] 220 mg PO BID PRN 01/07/21 01/12/21 Allergies Allergy/AdvReac Type Severity Reaction Status Date / Time codeine Allergy Nausea and Verified 12/22/20 11:34 Vomiting nut - unspecified AdvReac Hives Verified 12/22/20 11:34 Review of Systems Review of Systems: All systems reviewed & are unremarkable except as noted in HPI and below Constitutional: Constitutional: Denies chills, Reports fatigue, Denies fever(s), Denies headache(s) and Reports weakness Eyes: Eyes: Reports no additional eye complaints and Denies change in vision ENT: Denies headache(s), Denies epistaxis, Denies nasal congestion and Reports sore throat Comments: He has frequent slight nosebleeds Cardiovascular: Cardiovascular: Reports chest pain (Especially when he lays down), Denies leg edema, Denies palpitations and Denies dyspnea Respiratory: Respiratory: Denies cough, Denies dyspnea and Denies wheezing Gastrointestinal: Gastrointestinal: Denies abdominal pain, Reports constipation, Denies diarrhea, Reports nausea and Denies vomiting Genitourinary: Genitourinary: Denies hematuria, Denies dysuria and Denies urinary frequency Musculoskeletal: Musculoskeletal: Reports myalgias, Denies deformity, Denies arthralgias, Denies joint swelling, Denies muscle weakness and Denies numbness Integumentary/Breasts: Skin/Breast: Denies rash and Denies wounds Neurologic: Denies headache(s), Denies focal weakness, Denies numbness and Reports weakness Psychiatric: Psychiatric: Reports no additional psychiatric complaints Endocrine: Endocrine: Denies fatigue and Denies palpitations Hematologic/Lymphatic: Hematologic/Lymphatic: Reports easy bleeding and Denies easy bruising Allergic/Immunologic: Allergic/Immunologic: Denies wheezing [facility] Past Medical History Medical History (Updated 01/12/21 @ 19:56 by Orlando Paul MD) Benign parotid tumor CAD (coronary artery disease) Surgical History Surgical History Hx of CABG Family History Family History Father Family history of diabetes mellitus in first degree relative Other Family history of allergic disorder Social History Social History Smoking packs per day: 1 Smoking cigarettes per day: 20.0 Years smoked: 35 Smoking pack-years: 35.00 Smoking status: Former smoker Tobacco type: cigarettes Second hand tobacco smoke exposure: No Alcohol intake: never Substance use: never Substance use type: does not use Spiritual care concerns: No Exam Const: General: no acute distress, well developed, alert and awake Nutritional Appearance: thin Orientation/consciousness: patient oriented x3 (alert) Limitations: no l
[2021-01-12 17:23] LABS: Basophils Percent Auto 0.1 % (0.2-1.2); Eosinophils Percent Auto 0.1 % (0-4.4); Hematocrit 32.6 % (42.0-52.0); Hemoglobin 10.2 g/dL (14.0-18.0); Immature Granulocyte Absolute 0.08 K/mm3 (0.00-0.031); Immature Granulocyte Percent A 0.7 % (0-0.5); Lymphocytes Absolute Auto 0.36 K/mm3 (0.9-3.2); Lymphocytes Percent Auto 3.3 % (18.3-44.2); Mean Corpuscular HGB Conc 31.3 g/dl (32-36); Mean Corpuscular Hemoglobin 25.8 pg (26-34); Mean Corpuscular Volume 82.5 fl (80-100); Mean Platelet Volume 8.5 fl (7.4-10.4); Monocytes Absolute Auto 0.1 K/mm3 (0.1-0.6); Monocytes Percent Auto 0.7 % (2.6-8.5); Neutrophils Absolute Auto 10.4 K/mm3 (1.3-6.7); Neutrophils Percent Auto 95.1 % (45.5-73.1); Platelet Count Result 137 k/mm3 (150-375); Red Blood Count 3.95 M/mm3 (4.6-6.20); Red Cell Distribution Width 18.2 % (11.5-14.5); White Blood Count 10.9 K/mm3 (4.5-10.0)
[2021-01-12 17:33] LABS: INR 1.3; Prothrombin Time 16.3 Seconds (11.1-14.7)
[2021-01-12 17:35] LABS: Alanine Aminotransferase 38 U/L (4-50); Albumin Level 3.4 g/dL (3.5-5.1); Alkaline Phosphatase 142 U/L (38-126); Anion Gap 4 mmol/L (8-16); Aspartate Amino Transferase 44 U/L (17-59); Bilirubin,Total 1.1 mg/dL (0.2-1.3); Blood Urea Nitrogen 58 mg/dL (9-20); Calcium 9.1 mg/dL (8.4-10.2); Carbon Dioxide 29 mmol/L (22-30); Chloride 104 mmol/L (98-107); Estimated CRCL calculation 43 ml/min; Estimated Glomerular Filt Rate 59; Glucose 139 mg/dL (75-110); Lipase 72 U/L (23-300); Potassium 5.2 mmol/L (3.4-5.0); Sodium 137 mmol/L (137-145)
[2021-01-12 17:44] LABS: Anisocytosis 2+ (NORMAL); Hypochromasia 1+ (NORMAL)
[2021-01-12] MEDS: LACTATED RINGERS 1,000 ML 999 ML IV CONT ×2 (17:48→19:44)
[2021-01-12] MEDS: FAMOTIDINE 20 MG/2 ML VIAL 40 MG IV PUSH (17:49)
[2021-01-12] MEDS: ONDANSETRON INJ 4 MG/2 ML VIAL IV PUSH (17:49)
--- NOTE | 2021-01-12 19:20 | PC.NURSE ---
Bedside report received from Saritha RN. Pt resting comfortably on stretcher, states is feeling much better and is ready to go home. IVF continue at this time. Explained ERP has ordered a 2nd bag due to patient's hydration status. Verb understanding. Denies needs at present.
== END 2021-01-12 21:07 | disposition home or self-care (01) ==
PROVIDERS: Emergency Provider Emergency Medicine; PCP Family Medicine
DX: E86.0 Dehydration (principal); C34.11 Malignant neoplasm of upper lobe, right bronchus or lung; I25.10 Atherosclerotic heart disease of native coronary artery without angina pectoris; Z95.1 Presence of aortocoronary bypass graft; Z87.891 Personal history of nicotine dependence; Z79.899 Other long term (current) drug therapy
CPT/HCPCS: 36415; 80053; 83690; 85025; 85610; 96361; 96374; 96375; 99213; 99284; G0463; J2405; J7120

== ENCOUNTER 2021-01-16 09:14 | Inpatient (IN) | payer MEDICARE, SELFPAY ==
[2021-01-16] VITALS (29 sets, daily range): BP systolic 70–137; BP diastolic 37–113; PULSE 78–125; RESP 12–25; TEMP 36.2–36.7; O2SAT 70–100; BMI 20.8; BMI 21.4
--- NOTE | ~2021-01-16 | CT_ITS ---
EXAMINATION: CT abdomen pelvis wo con DATE: 01/17/2021 02:27 INDICATION: Left-sided abdominal pain, history of lung cancer TECHNIQUE: Computed tomography (CT) of the abdomen and pelvis was performed without intravenous contr ast. The dose-length product (DLP) was 676.59 mGy-cm. Automated exposure control and iterative recons truction technique were employed. COMPARISON: None FINDINGS: There is a large right pleural effusion. A small left pleural effusion is present. The hear t size is normal. There is gaseous distention of the stomach. The liver, spleen, pancreas, and adrena l glands are normal. The gallbladder is not definitely identified. The kidneys are unremarkable. Cont rast from earlier CT examination opacifies the urinary bladder. The appendix is normal. Colonic diver ticulosis is present without evidence of diverticulitis. No pathologically enlarged abdominal or pelv ic lymph nodes are identified. There is a 4.5 cm fusiform infrarenal abdominal aortic aneurysm status post bifurcated endoluminal aortic stent graft repair. There are changes of left hip arthroplasty. D iffuse anasarca is noted. There is severe lumbar spondylosis. IMPRESSION: 1. Large right and small left pleural effusions. 2. Gaseous distention of the stomach of unclear significance. Reviewed, dictated and finalized at location A. ITECTURE PROFESSOR
--- NOTE | ~2021-01-16 | XR_ITS ---
EXAMINATION: XR abdomen/kub 1V EXAM DATE: 01/16/2021 16:04 INDICATION: Left-sided low abdominal pain, symptoms 8 days. TECHNIQUE: Frontal projection(s) of the abdomen for interpretation. There is no prior study for chitra ny. FINDINGS: Distended air-filled stomach. No evidence of small bowel obstruction. Only small to moderat e amount of colonic stool and gas. Contrast within the bladder. Also, similar density material which could be contained contrast located more inferiorly, of uncertain clinical significance-has patient had any prostate or bladder surgerie s? This region has been indicated on the exam for review. There are right-sided pelvic surgical clips . Moderate thoracic dextroscoliosis. Aortobiiliac stents. Left hip replacement. Moderate to severe lumb ar spondylosis. Moderate right hip arthroplasty. IMPRESSION: 1. Nonobstructive bowel gas pattern. 2. Sizable contained region of dense material which could be contrast in the perineum, or contained external to the patient. Reviewed, dictated and finalized at location A. CLE FARE COLLECTOR IMPRESSION: 1. Nonobstructive bowel gas pattern. 2. Sizable contained region of dense material which could be contrast in the p erineum, or contained external to the patient.
--- NOTE | ~2021-01-16 | XR_ITS ---
EXAMINATION: XR chest 1V portable INDICATION: Shortness of breath, pleural effusion TECHNIQUE: Portable AP chest at 0811 hours COMPARISON: 01/16/2021 FINDINGS: There is complete opacification of the right hemithorax. There is volume loss in the right hemithorax as well with rightward shift of the lower trachea. The left lung is clear. The heart size is normal. No pneumothorax is identified. Median sternotomy wires and mediastinal surgical clips are seen, likely from prior coronary artery bypass grafting. IMPRESSION: 1. Complete opacification of the right hemithorax, likely due to large pleural effusion, atelectasis, and known right upper lobe mass. Reviewed, dictated and finalized at location A. MBLY TECHNICIAN
--- NOTE | ~2021-01-16 | XR_ITS ---
EXAMINATION: XR chest 1V portable INDICATION: Shortness of breath and tachycardia TECHNIQUE: Portable AP chest at 1002 hours COMPARISON: 12/09/2020 FINDINGS: There is improved aeration in the left upper lung zone compared to the most recent chest ra diograph. An opacity persists in the right midlung zone. There is a moderate-sized right pleural effu yossi with associated opacities of the lung bases. The left lung is clear. No pneumothorax is identifi ed. The heart size is normal. Changes of aortic valve surgery are noted. IMPRESSION: 1. Moderate-sized right pleural effusion. Associated right basilar airspace opacities likely reflect atelectasis. 2. Persistent opacity of the right midlung zone, likely patient's known malignancy. Reviewed, dictated and finalized at location A. IFIED MEDICAL TECHNICIAN IMPRESSION: 1. Moderate-sized right pleural effusion. Associated right basilar airspace opa cities likely reflect atelectasis. 2. Persistent opacity of the right midlung zone, likely patient's known maligna ncy.
--- NOTE | ~2021-01-16 | US_ITS ---
EXAMINATION: US venous doppler [facility] DATE: 01/17/2021 08:56 INDICATION: Lower limb edema TECHNIQUE: Stafford scale images without and with compression and Doppler images of the bilateral lower e xtremity veins were obtained. COMPARISON: None FINDINGS: There is thrombosis in the right popliteal vein. The right common femoral vein, profunda femoral vein , femoral vein, peroneal trunk, posterior tibial veins, and greater saphenous vein are patent. The left common femoral vein, profunda femoral vein, femoral vein, popliteal vein, peroneal trunk, po sterior tibial veins, and greater saphenous vein are patent. IMPRESSION: 1. Thrombosis in the right popliteal vein. Patient has at the time of interpretation. Reviewed, dictated and finalized at location A. INSERTER REGULATOR IMPRESSION: 1. Thrombosis in the right popliteal vein. Patient has at the time of i nterpretation.
--- NOTE | ~2021-01-16 | CT_ITS ---
EXAMINATION: CTA chest PE protocol DATE: 01/16/2021 10:55 INDICATION: Shortness of breath, lung cancer TECHNIQUE: Computed tomography angiography (CTA) of the chest was performed with 100 mL Omnipaque-350 intravenous contrast timed to evaluate the pulmonary arteries. Coronal maximum intensity projection 3D-reconstructions were created by the technologist. The dose-length product (DLP) was 284.84 mGy-cm. Automated exposure control and iterative reconstruction technique were employed. COMPARISON: 11/09/2020 FINDINGS: The pulmonary arteries are well-opacified. No pulmonary embolism is identified. There is oc clusion of pulmonary arteries in the region of the right upper lobe mass. There is mild emphysema. A large right pleural effusion is present. There is a right perihilar mass extending to the right upper lobe with invasion of the right mainstem bronchus. The right subclavian vein is occluded by the mass and there are multiple collateral vessels of the right chest wall. There is no pneumothorax. The hea rt size is normal. Changes of cardiac surgery are noted. There are airspace opacities in the right mi ddle and lower lobes. IMPRESSION: 1. No pulmonary embolism identified. 2. 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 3. Large right pleural effusion. Reviewed, dictated and finalized at location A. NICIAN SEMICONDUCTOR DEVELOPMENT IMPRESSION: 1. No pulmonary embolism identified. 2. Right perihilar and upper lobe mass with occlusion of the right subclavian a rtery and multiple right chest wall collaterals. 3. Large right pleural effusion.
--- NOTE | 2021-01-16 09:22 | ECG_ITS ---
Measurements Intervals [place] Rate: 122 P: 65 MD: 172 QRS: 104 QRSD: 95 T: 7 QT: 303 QTc: 433 Interpretive Statements SINUS TACHYCARDIA RIGHT AXIS DEVIATION BORDERLINE ST-T WAVE ABNORMALITY- INF/LAT LEADS BASELINE ARTIFACT- I, II, III, AVR, AVL, V5-V6 ABNORMAL ECG Electronically Signed On 01-16-2021 9:35:11 BANK ADVISOR by Jasmeet Dunn D.O.
--- NOTE | 2021-01-16 09:25 | ED.GENADULT ---
HPI - General Adult General Chief complaint: Weakness Stated complaint: weakness Source: patient, EMS, RN notes reviewed and old records reviewed History of Present Illness HPI narrative: 75-year-old male presents to emergency department for nausea for the past week, and vomiting yesterday. Patient states he has had this in the past before, stating it is chemo related. He has taken his antiemetic medications prescribed to him. His last chemotherapy was a little over a week ago, and radiation was on Monday. He does report chronic shortness of breath, and chronic abdominal pain. Related Data Home Medications Medication Instructions Recorded Confirmed atorvastatin 10 mg PO HS 11/09/20 01/16/21 lisinopril 20 mg PO DAILY 11/09/20 01/16/21 metoprolol tartrate 12.5 mg PO BID 11/09/20 01/16/21 dexamethasone 4 mg PO BID 12/30/20 01/16/21 folic acid 1 mg PO DAILY 12/30/20 01/16/21 acetaminophen 325 mg PO Q6H PRN 01/16/21 01/16/21 prochlorperazine maleate 10 mg PO Q6H PRN 01/16/21 01/16/21 Allergies Allergy/AdvReac Type Severity Reaction Status Date / Time codeine Allergy Nausea and Verified 01/16/21 09:17 Vomiting nut - unspecified AdvReac Hives Verified 01/16/21 09:17 Review of Systems Review of Systems: Narrative: CONSTITUTIONAL: Denies fever, chills, or sweats. EYES: Denies visual changes, redness, or discharge. ENT: Denies rhinorrhea, congestion, sore throat, or otalgia. CARDIOVASCULAR: Denies chest pain, palpitations, or edema. RESPIRATORY: Denies cough. Reports chronic shortness of breath GASTROINTESTINAL: Reports chronic abdominal pain, also reports nausea and vomiting GENITOURINARY: Denies dysuria or hematuria. SKIN: Denies rash or itching. MUSCULOSKELETAL: Denies back pain, joint pain, or myalgia. NEUROLOGIC: Denies headache, numbness, dizziness, or weakness. PSYCHIATRIC: Denies anxiety or depression. 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 As of 01/16/2021 the patient is receiving chemo radiotherapy per Drs. Tenorio and Flavia. Chronic anemia Chronic kidney disease, stage 3 Baseline creatinine is around 1.50. Coronary artery disease Status post 2 vessel CABG in 2013. Essential hypertension Hyperlipidemia Valvular heart disease Aortic stenosis/regurgitation status post replacement in 2013. Warthin's tumor Several tumors excised over the years bilaterally. Followed by Dr. Robert Zepeda. Surgical History Surgical History (Updated 01/16/21 @ 13:17 by Verenice Wayne PA-C) History of abdominal aortic aneurysm repair (~2013) History of aortic valve replacement (~2013) History of basal cell carcinoma excision From the right shoulder. History of coronary artery bypass graft x 2 (~2013) History of lumbar laminectomy (~05/2005) History of right inguinal hernia repair (~08/2015) Family History Family History Father Family history of diabetes mellitus in first degree relative Other Family history of allergic disorder Social History Social History (Updated 01/16/21 @ 15:27 by Verenice Wayne PA-C) Social History: Surrogate decision maker: Yee Choudhury, friend. Code status: Do not resuscitate. Smoking packs per day: 1 Smoking cigarettes per day: 20.0 Years smoked: 30 Smoking pack-years: 30.00 Smoking status: Former smoker Tobacco type: cigarettes Second hand tobacco smoke exposure: No Alcohol intake: never Substance use: never Substance use type: does not use Additional living arrangements comments: The patient lives in [place]. He is single and has no children. Additional occupation/education comments: Worked in [employer]
[2021-01-16] MEDS: MORPHINE SULFATE (*CRX) 4 MG/ML INJ IV PUSH (09:32)
[2021-01-16] MEDS: ONDANSETRON INJ 4 MG/2 ML VIAL IV PUSH (09:32)
[2021-01-16] MEDS: SODIUM CHLORIDE 0.9% IV 1,000 ML 999 ML IV CONT ×2 (09:33→09:45)
--- NOTE | 2021-01-16 10:05 | PC.NURSE ---
Patient unable to pee at this time and refusing catheter. States will provide urine when able.
[2021-01-16 10:08] LABS: Lactate Dehydrogenase 462 U/L (313-618)
[2021-01-16 10:13] LABS: Alanine Aminotransferase 34 U/L (4-50); Albumin Level 3.2 g/dL (3.5-5.1); Alkaline Phosphatase 129 U/L (38-126); Anion Gap 6 mmol/L (8-16); Aspartate Amino Transferase 35 U/L (17-59); Blood Urea Nitrogen 74 mg/dL (9-20); CRP 5.2 mg/dL (<1.0); Calcium 8.9 mg/dL (8.4-10.2); Carbon Dioxide 34 mmol/L (22-30); Chloride 98 mmol/L (98-107); Estimated CRCL calculation 29 ml/min; Estimated Glomerular Filt Rate 37; Glucose 139 mg/dL (75-110); Lipase 67 U/L (23-300); Potassium 4.5 mmol/L (3.4-5.0); Sodium 138 mmol/L (137-145)
[2021-01-16 10:14] LABS: Basophils Percent Auto 0.2 % (0.2-1.2); Hematocrit 32.1 % (42.0-52.0); Hemoglobin 10.1 g/dL (14.0-18.0); Immature Granulocyte Absolute 0.07 K/mm3 (0.00-0.031); Immature Granulocyte Percent A 0.8 % (0-0.5); Immature Platelet Fraction Pct 2.4 % (0.9-11.2); Lymphocytes Absolute Auto 0.43 K/mm3 (0.9-3.2); Lymphocytes Percent Auto 4.7 % (18.3-44.2); Mean Corpuscular HGB Conc 31.5 g/dl (32-36); Mean Corpuscular Hemoglobin 25.8 pg (26-34); Mean Corpuscular Volume 82.1 fl (80-100); Mean Platelet Volume 9.1 fl (7.4-10.4); Monocytes Absolute Auto 0.3 K/mm3 (0.1-0.6); Monocytes Percent Auto 2.7 % (2.6-8.5); Neutrophils Absolute Auto 8.3 K/mm3 (1.3-6.7); Neutrophils Percent Auto 91.6 % (45.5-73.1); Platelet Count Result 82 k/mm3 (150-375); Red Blood Count 3.91 M/mm3 (4.6-6.20); Red Cell Distribution Width 17.5 % (11.5-14.5); White Blood Count 9.1 K/mm3 (4.5-10.0)
[2021-01-16 10:22] LABS: NT Pro B Type Natriuretic Pept 1310 PG/ML (5-100); Troponin I 0.016 ng/mL (0.000-0.034)
[2021-01-16 10:34] LABS: Hypochromasia 2+ (NORMAL); Platelet Estimate Decreased (Adequate); Stomatocytes 1+ (NORMAL)
[2021-01-16 11:00] LABS: D Dimer 11.75 ug/mL (<0.48)
[2021-01-16 11:01] LABS: Procalcitonin 0.2 ng/mL
--- NOTE | 2021-01-16 11:09 | PC.NURSE ---
Patient returned from CT noted to be 68% on 2 Li NC at this time. at bedside with oxygen increased to 4 Li NC.
[2021-01-16 11:26] LABS: Alveolar/Arterial O2 Gradient 72.7 mmHg; Fractional Inspired Oxygen 36 %; HCO3 ABG 24.4 mEq/l (22.0-26.0); Oxygen Content ABG 12.1 %vol (16.0-22.0); Oxygen Saturation ABG 98.6 % (95.0-100.0); Oxyhemoglobin 96.6 % THb (90.0-100.0); PCO2 ABG 43.3 mmHg (35.0-45.0); PO2 ABG 133.8 mmHg (80.0-100.0); PO2 FiO2 Ratio Arterial Blood 3.72 %; Total Hemoglobin 8.7 g/dL (12.0-18.0); pH ABG 7.368 (7.350-7.450)
[2021-01-16 11:27] LABS: Device NASAL CANNULA; Site Drawn LEFT BRACHIAL
--- NOTE | 2021-01-16 11:56 | PC.NURSE ---
Decreased oxygen via NC to 3 Li at this time per EDP.
--- NOTE | 2021-01-16 12:57 | PC.NURSE ---
Patient was noted to have oxygen desaturation to 85% on monitor. In room, patient was asleep but woke easily. After waking his saturation increased to 99%. He remains on 3 liters oxygen by nasal cannula at this time. EDP notified
[2021-01-16 13:32] LABS: Add Urine Microscopic? NO; Appearance Urine Clear (Clear); Bilirubin Urine Negative (Negative); Blood Urine Negative (Negative); Color Urine Yellow (Yellow); Glucose Urine UA Negative (Negative); Ketones Urine Negative (Negative); Leukocyte Esterase Ur Negative LEU/UL (Negative); Mucus Urine Rare /lpf; Nitrate Urine Negative (Negative); Protein Urine Negative (Negative); RBC Urine 0-2 /hpf (0-2); Urobilinogen Urine Negative mg/dL (<2.0); WBC Urine 0-3 /hpf
--- NOTE | 2021-01-16 13:43 | ECG_ITS ---
Measurements Intervals [place] Rate: 107 P: 43 CA: 140 QRS: 95 QRSD: 102 T: 48 QT: 338 QTc: 452 Interpretive Statements SINUS TACHYCARDIA ATRIAL PREMATURE COMPLEXES RIGHT AXIS DEVIATION ABNORMAL ECG Electronically Signed On 01-16-2021 14:47:03 SHRINK PIT SUPERVISOR by Jasmeet Dunn D.O.
[2021-01-16 13:46] LABS: Specific Grav Ur 1.038 (1.001-1.035)
[2021-01-16] MEDS: SODIUM CHLORIDE 0.9% IV 500 ML 999 ML IV CONT ×2 (13:47→21:31)
--- NOTE | 2021-01-16 14:15 | PM.IMHP ---
H&P: HPI History of Present Illness Date/Time: 01/16/21 14:15 Chief Complaint: Generalized weakness. Narrative: This is a 75-year-old male diagnosed with lung cancer in October 2020 currently undergoing chemoradiotherapy presented to the emergency department earlier today via EMS from home with complaints of generalized weakness. His medical history is also significant for coronary artery disease, hypertension, chronic kidney disease, and chronic anemia. Mr. Chin's 1st chemotherapy treatment was a little over a week ago with his last radiation treatment being this past Monday. Since his 1st chemotherapy treatment, he has just not felt well with generalized weakness, fatigue, nausea, and several episodes of emesis. More recently he has had discomfort with swallowing which he attributes to radiation treatments and thus his oral intake has been poor. He has also been feeling lightheaded and dizzy in fact he was seen in emergency department on 01/12/2021 for orthostatic hypotension in which he received IV fluid rehydration. Blood pressure not long after arrival to the emergency department with 79/55 and that did improve with IV fluids although his pressures began to drop a couple of hours thereafter requiring additional fluid boluses. Since that time he has had increasing oxygen requirements. It is noted on imaging today that he had a large, recurrent right pleural effusion and with further questioning he admits to having increasing shortness of breath recently as ?I feel like I cannot get enough air in.? He also has an occasional cough productive of clear phlegm. He denies fever, chills, sweats, headache, sinus congestion, rhinorrhea, otalgia, chest pain, pleuritic pain, palpitations, diarrhea, and dysuria. No sick contacts or exposure to those positive for COVID-19. Of note, the patient did take all of his medications today, including his antihypertensives. Review of Systems Review of Systems: Narrative: Twelve systems were reviewed with pertinent positives and negatives as per HPI. He had a fall a couple of weeks ago due to presumed orthostatic hypotension, but states he did not injure himself. He has had a sore throat from radiation but he denies dysphagia and concerns for aspiration. He has had some generalized discomfort throughout his abdomen, more so on the left side with mild distension. He has not had a good bowel movement for couple of days. Over the last month or so he has had intermittent swelling of his hands and upper extremities, at 1 point time was prescribed Lasix which did seem to help somewhat. No history of venous thromboembolism. Except as documented, all other systems were reviewed and are negative. 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 As of 01/16/2021 the patient is receiving chemo radiotherapy per Drs. Tenorio and Flavia. Chronic anemia Chronic kidney disease, stage 3 Baseline creatinine is around 1.50. Coronary artery disease Status post 2 vessel CABG in 2013. Essential hypertension Hyperlipidemia Valvular heart disease Aortic stenosis/regurgitation status post replacement in 2013. Warthin's tumor Several tumors excised over the years bilaterally. Followed by Dr. Robert Zepeda. Surgical History Surgical History (Updated 01/16/21 @ 13:17 by Verenice Wayne PA-C) History of abdominal aortic aneurysm repair (~2013) History of aortic valve replacement (~2013) History of basal cell carcinoma excision From the right shoulder. History of coronary artery bypass graft x 2 (~2013) History of lumbar laminectomy (~05/2005) History of right inguinal hernia repair (~08/2015) Family History Family History Father Family history of diabetes mellitus in first degr
--- NOTE | 2021-01-16 14:30 | ADMGEN ---
This patient, Migel Chin, was admitted to IMU Room 212-01. Patient/family oriented to hospital policies and general routines including ID bracelet, bed and alarms, visiting hours, pain management, procedures, bathroom and other care routines, personal items, smoking policy, room service/diet, and visiting hours. Information on how to activate the Rapid Response Team has been discussed. Patient/Family are encouraged to report perceived risks to care and to ask questions if they do not understand what they are told or what they should do.
[2021-01-16] MEDS: LACTATED RINGERS 1,000 ML 75 ML IV CONT (15:30)
[2021-01-16 19:10] LABS: SARS-CoV-2 RNA PCR Negative
--- NOTE | 2021-01-16 23:29 | PM.EVENT ---
Event Note Event Note Event Note: 01/16/2021 at 11:00 p.m. I received a call from nursing staff. The patient had been having intermittent hypotension. A cheetah score was obtained and demonstrated the patient was not fluid responsive. The patient had also developed an oxygen requirement after previous fluid boluses. Patient was subsequently transferred to the ICU. I placed a right femoral central line and start the patient on Levophed. During the procedure the patient did have further desaturations in his oxygen and his oxygen was increased to 5 L. On physical exam he appears chronically ill-appearing with bilateral upper extremity swelling consistent with this history of SVC syndrome. He has mild tachypnea, mild abdominal distension, generalized pallor, normal temperature to palpation of skin, head is normocephalic atraumatic, JVD and mild facial edema Patient's chart and imaging results were reviewed. The patient KUB due to left sided abdominal pain which demonstrated contrast in the bladder and contrast in the perineum of uncertain significance. Subsequently a CT of the abdomen pelvis has been ordered. Assessment and plan: 1. Shock--initially the thought to be due to hypovolemia in the patient did initially respond to fluid resuscitation. Given his recent chemotherapy administration and radiation therapy treatments he possibly could have sepsis. The patient received a dose of cefepime and vancomycin this morning in the ER. Currently he is afebrile and has a normal white count. He did take his home antihypertensive so component of his blood pressure could be due to medication effect as well. Given his immunocompromised state to will place patient on empiric antibiotic therapy with cefepime and vancomycin. Blood cultures are pending.. Thoracentesis has been ordered for a.m.. A central line has been placed. The patient has been started on Levophed and blood pressures have improved to 95/52. Will titrate Levophed per protocol. A call has been placed to the academic vice president for consult. 2. Abdominal pain and abnormal KUB--the patient has possible contrast in his bladder and in his perineum of uncertain significance. Given his abdominal pain and uncertain etiology of x-ray findings as stat CT of the abdomen pelvis has been ordered. 35 minutes spent in critical care activities in exclusion of procedures. This case had a high probability of a clinically significant, sudden, or life threatening deterioration of this patient's condition which required my full and direct attention, intervention and personal management.
[2021-01-17] VITALS (8 sets, daily range): BP systolic 74–113; BP diastolic 41–64; PULSE 87–105; RESP 15–25; TEMP 36.2–37; O2SAT 94–100
--- NOTE | 2021-01-17 00:36 | PC.NURSE ---
This patient, Migel Chin, was transferred to [ICU-1 ] on 01/17/21 at 0015 for central line insertion and vasopressors. Personal belongings sent with patient. Report given to [ Wendi]. Appropriate documentation sent with patient.
[2021-01-17] MEDS: NOREPINEPHRINE 8 MG/D5W 250 ML 8 MG/250 ML BAG 9.38 MG IV CONT (01:31)
--- NOTE | 2021-01-17 01:31 | P.PCNBED_ITS ---
Procedures Central Line Placement Right Femoral: Central Line Date: 01/17/21 Central Line Time: 00:35 Discussed w/ the patient/family/POA,the placement of a central venous catheter, including its clinical necessity/indication & associated potential risks, benifits and alternatives.: Yes The patient/family/POA understand(s) and acknowledge(s) the need to proceed with central venous catheter insertion as an important element of the patient's clinical management.: Yes Time Out Performed: Yes Patient Position: trendelenburg Patient placed on monitor/pulse ox: Yes Provider Prep: mask, sterile gown, sterile gloves, Max. sterile barrier precautions, cap and hand hygiene with conventional soap/water or alcohol based hand rub Central line prep: 2% Chlorhexidine scrub Local anesthesia used: lidocaine 1% Amount of anesthesia used (ml): 10 Sterile US Technique with sterile gel/sterile probe covers: Yes Central line lumen inserted: triple Sinhala: 7 Length (cm): 15 Depth of Insertion (cm): 15 Post Procedure: sutured in place, good blood return, all ports aspirated, flushed, capped, transparent dressing, hemostatic product, antimicrobial product and securement product Patient tolerated procedure: well Complications: none
[2021-01-17 05:37] LABS: Hematocrit 24.7 % (42.0-52.0); Hemoglobin 7.7 g/dL (14.0-18.0); Immature Platelet Fraction Pct 3.2 % (0.9-11.2); Mean Corpuscular HGB Conc 31.2 g/dl (32-36); Mean Corpuscular Hemoglobin 26.2 pg (26-34); Mean Platelet Volume 9.2 fl (7.4-10.4); Platelet Count Result 54 k/mm3 (150-375); Red Blood Count 2.94 M/mm3 (4.6-6.20); Red Cell Distribution Width 17.3 % (11.5-14.5); White Blood Count 10.2 K/mm3 (4.5-10.0)
[2021-01-17 05:48] LABS: INR 1.5; Partial Thromboplastin Time 29.9 SECONDS (22.3-36.8); Prothrombin Time 18.4 Seconds (11.1-14.7)
[2021-01-17 05:54] LABS: Anion Gap -1 mmol/L (8-16); Blood Urea Nitrogen 88 mg/dL (9-20); Calcium 7.8 mg/dL (8.4-10.2); Carbon Dioxide 27 mmol/L (22-30); Chloride 109 mmol/L (98-107); Estimated CRCL calculation 31 ml/min; Estimated Glomerular Filt Rate 37; Glucose 109 mg/dL (75-110); Magnesium 1.8 mg/dL (1.6-2.3); Potassium 4.8 mmol/L (3.4-5.0); Sodium 135 mmol/L (137-145)
--- NOTE | 2021-01-17 07:46 | PC.NURSE ---
This patient, Migel Chin, was received from IMU on 01/17/21 at 0015. Patient/family oriented to unit policies and routines
[2021-01-17] MEDS: LACTATED RINGERS 1,000 ML 1000 ML IV CONT (08:40)
[2021-01-17] MEDS: LACTATED RINGERS 1,000 ML 75 ML IV CONT (10:04)
[2021-01-17] MEDS: PANTOPRAZOLE SODIUM IV 40 MG VIAL IV PUSH (10:05)
[2021-01-17] MEDS: MORPHINE SULFATE INJ (*CRX) 10 MG/ML AMP IV PUSH (11:12)
[2021-01-17] MEDS: LORazepam INJ (*CRX) 2 MG/ML VIAL (11:15)
--- NOTE | 2021-01-17 11:29 | PC.NURSE ---
after a little controversy over pt's code status, cpr done and meds givens for a brief moment then and Dr. Sandy here, placed on comfort care, callpt's poa, pt passed at 11:14, no blood pressure, no pulse no breathing , no heart rates heard
--- NOTE | 2021-01-17 11:38 | PM.DDS ---
Discharge Sum: Prov Provider Primary care physician: Aly German, Admitting provider: Jovanna Corey MD Consults: 01/17/21 Consult to Physician Routine Comment: Consulting Provider: Cordell Wayne land leveler/MD group to consult: Enterprise Solutions Architect---message left on voicemail Reason for consultation: Shock Has provider been notified: Yes Discharge Sum: Diag Contributing Factors (1) Cardiac arrest: (2) Non-small cell cancer of right lung: (3) Thrombocytopenia: (4) Recurrent right pleural effusion: (5) SIRS (systemic inflammatory response syndrome): (6) Essential (primary) hypertension: Discharge Sum: Summary Date and Time Date of admission: 01/16/21 12:18 Date of : 01/17/20 Time of : 11:14 Summary Details: Patient became bradycardic and went into asystole code blue was activated and ACLS protocol was started patient received chest compressions and epi x 1 when it was confirmed that patient was DNR and code was stopped Additional Data Confirmation of as documented by pronouncing clinician: no pulse and no respirations Family: not available (Had friend.) Attending/PCP notified?: No Attending physician: Jovanna Corey MD Was code activated?: Yes Autopsy requested?: No qualifications examiner notified?: No Organ bank notified?: No Advance directives: Yes Hospice patient?: No
--- NOTE | 2021-01-17 11:46 | WPDCNINT ---
Assessment and Plan Assessment and plan (1) Sepsis: Code(s): A41.9 - Sepsis, unspecified organism Status: Acute Assessment and Plan: Responded to fluid boluses initially and agree with the current broad-spectrum antibiotic coverage. Urine and blood cultures have been sent are pending (2) Hypotension: Code(s): I95.9 - Hypotension, unspecified Status: Acute (3) Dehydration: Code(s): E86.0 - Dehydration Status: Acute (4) Recurrent right pleural effusion: Code(s): J90 - Pleural effusion, not elsewhere classified Status: Acute (5) Right subclavian artery occlusion: Code(s): I70.8 - Atherosclerosis of other arteries Status: Acute (6) Non-small cell cancer of right lung: Code(s): C34.91 - Malignant neoplasm of unspecified part of right bronchus or lung Status: Acute (7) Cardiac arrest: Code(s): I46.9 - Cardiac arrest, cause unspecified Status: Acute Assessment and Plan: the causes could be respiratory arrest from a pulmonary embolism, right malignant pleural effusion but could also be cardiac in nature including acute coronary syndrome. The patient was originally in asystole and later developed PE a period a pulse did come back after 5 minutes of CPR per ACLS protocol but at that time we had noticed that he was a DNR status and stopped all measures and made him comfortable. He at 11:14 a.m. the POA was contacted and informed. Additional Plan Code Status: DNR Critical care time: 40 minutes excluding all procedures [employer] Att[employer] Consult Note Consult date: 01/17/21 Time Seen: 08:30 HPI: Migel Chin is a 75 year old male recently diagnosed with non small cell lung CA of Right lung stage IIIc last month s/p a radiation therapy and one course of chemotherapy about one week ago presents yesterday with weakness, dehydration. He was moved to the ICU last night because of hypotension and suspicion of sepsis. He was started on Levophed for blood pressure support and broad-spectrum antibiotics. When I examined the patient he appeared to be comfortable on 2 L nasal cannula although he says he has been more short of breath over the past few days. He had a thoracentesis about a month ago on the right side for a malignant pleural effusion. CT of the chest on admission showed a large right pleural effusion with compressive atelectasis consistent with malignant pleural effusion. Unfortunately this morning he went into respiratory and cardiac arrest and we performed CPR for approximately 5 minutes and stopped immediately up upon recognizing that he was a DNR status. He was given morphine and he at 11:14 a.m. comfortably. Review of Systems Review of Systems: All systems reviewed & are unremarkable except as noted in HPI and below PMFSH Past Medical History Medical History (Updated 01/17/21 @ 12:05 by Cordell Wayne MD) Cancer of right lung (~10/2020) Primary cancer of the right upper lobe of the lung, stage IIIC non-small cell, favor adenocarcinoma. As of 01/16/2021 the patient is receiving chemo radiotherapy per Drs. Tenorio and Flavia. Chronic anemia Chronic kidney disease, stage 3 Baseline creatinine is around 1.50. Coronary artery disease Status post 2 vessel CABG in 2013. Essential hypertension Hyperlipidemia Valvular heart disease Aortic stenosis/regurgitation status post replacement in 2013. Warthin's tumor Several tumors excised over the years bilaterally. Followed by Dr. Robert Zepeda. Surgical History Surgical History (Updated 01/16/21 @ 20:19 by Verenice Wayne PA-C) History of abdominal aortic aneurysm repair (~2013) History of aortic valve replacement (~2013) History of basal cell carcinoma excision From the right shoulder. History of coronary artery bypass graft x 2 (~2013) History of left hip replacement History of lumbar laminectomy (~05/2005) History of right inguinal hernia
--- NOTE | 2021-01-17 12:07 | PDCODEBLUE ---
Code Blue Note Code Blue Note Time Arrived at Code Blue: 11:05 am Initial Rhythm on Arrival: bradycardia then asystole then PEA Airway Management: No airway on arrival Chest Compressions: Initiated upon arrival Result of Code Blue: Pt Cardiac Rhythm Post Code: sinus tachycardia Code Blue Summary: The patient originally became hypoxic and then suddenly became unresponsive with agonal breathing. He then later developed a sinus bradycardia into the low 40s followed by asystole with no pulse CPR was immediately started and 1 dose of epinephrine and 1 amp of sodium bicarb was given with return of spontaneous circulation after about 5 minutes. It was at that time that I was informed that the patient was DNR and hands all resuscitative efforts were stopped at that time and he was made comfortable. He was given 10 mg of IV morphine and at 11:14 a.m. comfortably.
--- NOTE | 2021-01-17 12:49 | PC.NURSE ---
Pt transfered to [facility] [place] to await home excelsior picker
== END 2021-01-17 11:14 | disposition expired | DRG 871 ==
LOC: ANHED 12:17 → ANHICU 01-17 03:06 → ANHIMU 01-20 13:05
PROVIDERS: Physician Assistant; Admitting Provider Family Medicine; Emergency Provider Emergency Medicine; PCP Family Medicine; Visit Provider Internal Medicine
DX: A41.9 Sepsis, unspecified organism (principal); J96.01 Acute respiratory failure with hypoxia; R65.21 Severe sepsis with septic shock; C34.91 Malignant neoplasm of unspecified part of right bronchus or lung; E86.0 Dehydration; I12.9 Hypertensive chronic kidney disease with stage 1 through stage 4 chronic kidney disease, or unspecified chronic kidney disease; N18.30 Chronic kidney disease, stage 3 unspecified; D69.6 Thrombocytopenia, unspecified; Z66 Do not resuscitate; I46.9 Cardiac arrest, cause unspecified; Z20.822 Contact with and (suspected) exposure to COVID-19
CPT/HCPCS: 36415; 36600; 71045; 71275; 74018; 74176; 80048; 80053; 81003; 82728; 82805; 83605; 83615; 83690; 83735; 83880; 84145; 84484; 85025; 85027; 85055; 85380; 85610; 85730; 86140; 87040; 92950; 93005; 93970; 96365; 96367; 96375; 99285; A9270; C1729; C1751; C9113; C9803; J0131; J0692; J2060; J2270; J2405; J3370; J7030; J7040; J7120; Q9967; U0003; U0005